=== PATIENT | male | born 1970 | race Caucasian/White ===

== ENCOUNTER 2017-03-17 01:35 | Inpatient (IN) | payer MEDICAID, OTHER ==
[~2017-03-17] VITALS: Ht 167.6 cm; Wt 60.3 kg
[~2017-03-17 01:35] MED LIST: QUET200T PO
[2017-03-17 02:13] LABS: BASOPHILS % (AUTO) 0.9 % (0.0-2.0); EOSINOPHILS % (AUTO) 1.9 % (1.0-6.0); HEMOGLOBIN 15.4 g/dL (13.5-17.5); LYMPHOCYTES # (AUTO) 1.9 K/uL (1.0-4.8); LYMPHOCYTES % (AUTO) 14.4 % (22.0-44.0); MEAN CORPUSCULAR HEMOGLOBIN 30.4 pg (26.0-34.0); MEAN CORPUSCULAR HGB CONC 34.2 G/dL (31.0-37.0); MEAN CORPUSCULAR VOLUME 89 fL (80-100); MONOCYTES # (AUTO) 0.7 K/uL (0.1-1.0); MONOCYTES % (AUTO) 5.1 % (2.0-9.0); NEUTROPHILS # (AUTO) 10.3 K/uL (1.8-7.7); NEUTROPHILS % (AUTO) 77.7 % (40.0-70.0); PLATELET COUNT (AUTO) 287 K/uL (150-450); RED BLOOD CELL COUNT(AUTO) 5.05 MIL/uL (4.50-5.90); RED CELL DISTRIBUTION WIDTH 13.4 % (11.5-14.5); WHITE BLOOD COUNT (AUTO) 13.2 K/uL (4.5-11.0)
[2017-03-17 02:25] LABS: ANION GAP 10 mmol/L (8-16); CALCIUM, TOTAL 8.8 mg/dL (8.8-10.5); CARBON DIOXIDE 28 mmol/L (22-29); CHLORIDE 94 mmol/L (98-107); CREATININE 1.34 mg/dL (0.60-1.30); GLOMERULAR FILTR. RATE CALC 57 mL/min (>60); POTASSIUM 3.6 mmol/L (3.5-5.1); SODIUM SERUM 132 mmol/L (136-145); UREA NITROGEN, BLOOD 12 mg/dL (7-18)
[2017-03-17 02:32] LABS: ALANINE AMINOTRANSFERASE 35 U/L (12-78); ALBUMIN 4.6 g/dL (3.4-5.0); ASPARTATE AMINOTRANSFERASE 21 U/L (15-37); BILIRUBIN,TOTAL 0.3 mg/dL (0.1-1.0)
[2017-03-17] MEDS ORDERED: LORazepam 2 MG TABLET PO ONE (03:00)
[2017-03-17] MEDS ORDERED: HALOPERIDOL 5 MG TABLET PO ONE (03:00)
[2017-03-17] MEDS ORDERED: HALOPERIDOL 5 MG TABLET PO PRN (04:00)
[2017-03-17] MEDS ORDERED: ZOLPIDEM TARTRATE 10 MG TABLET PO PRN (04:00)
[2017-03-17 08:26] VITALS: BP 105/70
[2017-03-17] MEDS: LORazepam 2 MG TABLET PO PRN ×2 (09:54→18:08)
[2017-03-17 10:16] VITALS: BP 105/70
[2017-03-17] MEDS ORDERED: ACETAMINOPHEN 325 MG TABLET PO PRN ×2 (10:30→14:45)
[2017-03-17] MEDS ORDERED: IBUPROFEN 400 MG TABLET PO PRN (14:45)
[2017-03-17 16:00] VITALS: BP 118/79
[2017-03-17] MEDS: QUEtiapine FUMARATE 200 MG TABLET PO SCH (20:22)
[2017-03-18] MEDS ORDERED: INFLUENZA VIRUS VACCINE QVS 2017-18 (3YR+)/PF 60 MCG/0.5 ML SYRINGE IM ONE (01:30)
[2017-03-18 06:03] VITALS: BP 118/80
[2017-03-18 08:28] VITALS: BP 135/83
[2017-03-18 16:00] VITALS: BP 128/74
[2017-03-18] MEDS: LORazepam 2 MG TABLET PO PRN (16:30)
[2017-03-18] MEDS: QUEtiapine FUMARATE 200 MG TABLET PO SCH (20:26)
[2017-03-19 05:43] VITALS: BP 122/78
[2017-03-19 07:53] LABS: HEMOGLOBIN A1C 6.2 % (4.5-6.2)
[2017-03-19 08:16] LABS: ALBUMIN 4.1 g/dL (3.4-5.0); BILIRUBIN,TOTAL 0.4 mg/dL (0.1-1.0); CHOL/HDL RATIO 2.3 (4.2-7.3); THYROID STIMULATING HORMONE 0.86 uIU/mL (0.36-3.74); TOTAL PROTEIN, SERUM 6.9 g/dL (6.4-8.2)
[2017-03-19 08:21] LABS: BILIRUBIN,DIRECT 0.1 mg/dL (0.00-0.20)
[2017-03-19 08:29] VITALS: BP 108/75
[2017-03-19] MEDS: LORazepam 2 MG TABLET PO PRN (10:57)
== END 2017-03-19 16:35 | disposition home or self-care (01) | DRG 750 ==
LOC: EMS 01:36 → B3A 04:30
PROVIDERS: ADMIT Psychiatry & Neurology Psychiatry
DX: F20.0 Paranoid schizophrenia (principal); E87.1 Hypo-osmolality and hyponatremia; E86.0 Dehydration; Z28.21 Immunization not carried out because of patient refusal; D72.829 Elevated white blood cell count, unspecified; H91.90 Unspecified hearing loss, unspecified ear; Z79.899 Other long term (current) drug therapy; Z91.5 Personal history of self-harm; R73.9 Hyperglycemia, unspecified
CPT/HCPCS: 83036; 84443; 90471; 99285; G0480

== ENCOUNTER 2017-04-17 08:25 | Emergency (ER) | payer MEDICAID, OTHER ==
[~2017-04-17] VITALS: Ht 170.2 cm; Wt 71.8 kg
[2017-04-17 08:58] LABS: BASOPHILS # (AUTO) 0.07 K/uL (0.00-0.20); BASOPHILS % (AUTO) 0.7 % (0.0-2.0); EOSINOPHILS # (AUTO) 0.28 K/uL (0.00-0.70); EOSINOPHILS % (AUTO) 2.79 % (1.0-6.0); HEMATOCRIT 43.9 % (41-53); LYMPHOCYTES # (AUTO) 1.8 K/uL (1.0-4.8); LYMPHOCYTES % (AUTO) 17.4 % (22.0-44.0); MEAN CORPUSCULAR HEMOGLOBIN 29.8 pg (26.0-34.0); MEAN CORPUSCULAR HGB CONC 34.2 G/dL (31.0-37.0); MEAN CORPUSCULAR VOLUME 87 fL (80-100); MONOCYTES # (AUTO) 0.5 K/uL (0.1-1.0); NEUTROPHILS # (AUTO) 7.5 K/uL (1.8-7.7); NEUTROPHILS % (AUTO) 74.1 % (40.0-70.0); PLATELET COUNT (AUTO) 305 K/uL (150-450); RED BLOOD CELL COUNT(AUTO) 5.03 MIL/uL (4.50-5.90); RED CELL DISTRIBUTION WIDTH 14.1 % (11.5-14.5); WHITE BLOOD COUNT (AUTO) 10.1 K/uL (4.5-11.0)
[2017-04-17 09:05] LABS: ANION GAP 8 mmol/L (8-16); CALCIUM, TOTAL 9.6 mg/dL (8.8-10.5); CARBON DIOXIDE 30 mmol/L (22-29); CHLORIDE 100 mmol/L (98-107); CREATININE 1.16 mg/dL (0.60-1.30); GLOMERULAR FILTR. RATE CALC > 60 mL/min (>60); POTASSIUM 3.9 mmol/L (3.5-5.1); SODIUM SERUM 138 mmol/L (136-145); UREA NITROGEN, BLOOD 18 mg/dL (7-18)
[2017-04-17 09:11] LABS: ALANINE AMINOTRANSFERASE 28 U/L (12-78); ALBUMIN 4.3 g/dL (3.4-5.0); ASPARTATE AMINOTRANSFERASE 18 U/L (15-37); BILIRUBIN,TOTAL 0.3 mg/dL (0.1-1.0); TOTAL PROTEIN, SERUM 7.8 g/dL (6.4-8.2)
[2017-04-17] MEDS ORDERED: LORazepam 1 MG TABLET PO ONE (11:45)
[2017-04-17] MEDS ORDERED: QUEtiapine FUMARATE 25 MG TABLET PO ONE (11:45)
[2017-04-17 11:59] VITALS: BP 123/59
== END 2017-04-17 12:24 | disposition home or self-care (01) ==
LOC: EMS 08:26 → EEVIPCON 08:26 → EMS 12:24
DX: F20.9 Schizophrenia, unspecified (principal)
CPT/HCPCS: 36415; 80053; 80307; 85025; 99285; G0480

== ENCOUNTER 2017-04-18 18:10 | Inpatient (IN) | payer MEDICAID, OTHER ==
[~2017-04-18] VITALS: Ht 170.2 cm; Wt 58.5 kg
[2017-04-18 19:26] LABS: BASOPHILS # (AUTO) 0.06 K/uL (0.00-0.20); BASOPHILS % (AUTO) 0.4 % (0.0-2.0); EOSINOPHILS # (AUTO) 0.19 K/uL (0.00-0.70); HEMATOCRIT 41.5 % (41-53); HEMOGLOBIN 13.9 g/dL (13.5-17.5); LYMPHOCYTES # (AUTO) 1.3 K/uL (1.0-4.8); LYMPHOCYTES % (AUTO) 8.9 % (22.0-44.0); MEAN CORPUSCULAR HEMOGLOBIN 30.3 pg (26.0-34.0); MEAN CORPUSCULAR HGB CONC 33.5 G/dL (31.0-37.0); MEAN CORPUSCULAR VOLUME 90 fL (80-100); MONOCYTES # (AUTO) 0.6 K/uL (0.1-1.0); MONOCYTES % (AUTO) 4.2 % (2.0-9.0); NEUTROPHILS # (AUTO) 12.5 K/uL (1.8-7.7); PLATELET COUNT (AUTO) 259 K/uL (150-450); RED CELL DISTRIBUTION WIDTH 13.9 % (11.5-14.5); WHITE BLOOD COUNT (AUTO) 14.6 K/uL (4.5-11.0)
[2017-04-18 19:30] LABS: NEUTROPHILS % (AUTO) 85.3 % (40.0-70.0)
[2017-04-18 19:43] LABS: ANION GAP 5 mmol/L (8-16); CARBON DIOXIDE 30 mmol/L (22-29); CHLORIDE 100 mmol/L (98-107); CREATININE 1.29 mg/dL (0.60-1.30); GLOMERULAR FILTR. RATE CALC 60 mL/min (>60); POTASSIUM 4.2 mmol/L (3.5-5.1); SODIUM SERUM 135 mmol/L (136-145); UREA NITROGEN, BLOOD 26 mg/dL (7-18)
[2017-04-18 19:52] LABS: ALANINE AMINOTRANSFERASE 29 U/L (12-78); ALBUMIN 3.9 g/dL (3.4-5.0); ASPARTATE AMINOTRANSFERASE 19 U/L (15-37); BILIRUBIN,TOTAL 0.3 mg/dL (0.1-1.0); TOTAL PROTEIN, SERUM 6.9 g/dL (6.4-8.2)
[2017-04-18] MEDS ORDERED: HALOPERIDOL LACTATE 5 MG/ML VIAL IM ONE (20:15)
[2017-04-18] MEDS ORDERED: HALOPERIDOL 5 MG TABLET PO PRN (21:15)
[2017-04-18] MEDS ORDERED: ZOLPIDEM TARTRATE 10 MG TABLET PO PRN (21:15)
[2017-04-18] MEDS ORDERED: LORazepam 2 MG TABLET PO PRN (21:15)
[2017-04-19 00:31] VITALS: BP 119/91
[2017-04-19] MEDS ORDERED: PNEUMOCOCCAL VACCINE POLYVALENT 0.5 ML VIAL [PPSV23] IM ONE (00:45)
[2017-04-19] MEDS ORDERED: INFLUENZA VIRUS VACCINE QVS 2017-18 (3YR+)/PF 60 MCG/0.5 ML SYRINGE IM ONE (00:45)
[2017-04-19 06:08] LABS: GLUCOSE COMMENT 1 Received Meds; GLUCOSE,POINT OF CARE 152 MG/DL (70-110)
[2017-04-19 06:42] LABS: BASOPHILS # (AUTO) 0.06 K/uL (0.00-0.20); BASOPHILS % (AUTO) 0.6 % (0.0-2.0); EOSINOPHILS # (AUTO) 0.25 K/uL (0.00-0.70); HEMATOCRIT 41.1 % (41-53); HEMOGLOBIN 13.8 g/dL (13.5-17.5); LYMPHOCYTES # (AUTO) 1.9 K/uL (1.0-4.8); LYMPHOCYTES % (AUTO) 16.9 % (22.0-44.0); MEAN CORPUSCULAR HEMOGLOBIN 29.9 pg (26.0-34.0); MEAN CORPUSCULAR HGB CONC 33.4 G/dL (31.0-37.0); MEAN CORPUSCULAR VOLUME 89 fL (80-100); MONOCYTES # (AUTO) 0.7 K/uL (0.1-1.0); MONOCYTES % (AUTO) 6.7 % (2.0-9.0); NEUTROPHILS # (AUTO) 8.1 K/uL (1.8-7.7); NEUTROPHILS % (AUTO) 73.5 % (40.0-70.0); PLATELET COUNT (AUTO) 260 K/uL (150-450); RED BLOOD CELL COUNT(AUTO) 4.61 MIL/uL (4.50-5.90); RED CELL DISTRIBUTION WIDTH 14.2 % (11.5-14.5)
[2017-04-19] MEDS ORDERED: DEXTROSE 50%-WATER 25 GM/50 ML SYRINGE IVP PRN (06:45)
[2017-04-19] MEDS: INSULIN ASPART 100 UNITS/ML SQ PRN ×2 (06:53→18:21)
[2017-04-19 06:59] LABS: HEMOGLOBIN A1C 6.5 % (4.5-6.2)
[2017-04-19 07:13] LABS: ALANINE AMINOTRANSFERASE 30 U/L (12-78); ALBUMIN 3.7 g/dL (3.4-5.0); ANION GAP 7 mmol/L (8-16); ASPARTATE AMINOTRANSFERASE 24 U/L (15-37); BILIRUBIN,TOTAL 0.4 mg/dL (0.1-1.0); CALCIUM, TOTAL 8.7 mg/dL (8.8-10.5); CARBON DIOXIDE 30 mmol/L (22-29); CHLORIDE 104 mmol/L (98-107); CHOL/HDL RATIO 2.8 (4.2-7.3); CREATININE 0.97 mg/dL (0.60-1.30); GLOMERULAR FILTR. RATE CALC > 60 mL/min (>60); POTASSIUM 4.3 mmol/L (3.5-5.1); SODIUM SERUM 141 mmol/L (136-145); TOTAL PROTEIN, SERUM 6.7 g/dL (6.4-8.2); UREA NITROGEN, BLOOD 22 mg/dL (7-18)
[2017-04-19 08:30] VITALS: BP 148/90
[2017-04-19 17:08] VITALS: BP 139/85
[2017-04-19] MEDS ORDERED: IBUPROFEN 400 MG TABLET PO PRN (18:45)
[2017-04-19] MEDS ORDERED: ACETAMINOPHEN 325 MG TABLET PO PRN (18:45)
[2017-04-19 18:47] LABS: GLUCOSE COMMENT 1 Received Meds; GLUCOSE,POINT OF CARE 168 MG/DL (70-110)
[2017-04-19] MEDS: QUEtiapine FUMARATE 200 MG TABLET PO SCH (22:24)
[2017-04-19 22:37] LABS: GLUCOSE,POINT OF CARE 135 MG/DL (70-110)
[2017-04-20] MEDS: INSULIN ASPART 100 UNITS/ML SQ PRN ×4 (06:24→20:59)
[2017-04-20 06:35] LABS: GLUCOSE COMMENT 1 Received Meds; GLUCOSE,POINT OF CARE 151 MG/DL (70-110)
[2017-04-20] MEDS: MetFORMIN HCL 500 MG TABLET PO SCH (06:42)
[2017-04-20 07:48] LABS: GLUCOSE,POINT OF CARE 199 MG/DL (70-110)
[2017-04-20 11:39] VITALS: BP 140/90
[2017-04-20 14:43] LABS: GLUCOSE,POINT OF CARE 280 MG/DL (70-110)
[2017-04-20 16:02] LABS: GLUCOSE COMMENT 1 Received Meds; GLUCOSE,POINT OF CARE 144 MG/DL (70-110)
[2017-04-20 16:57] VITALS: BP 125/79
[2017-04-20] MEDS: QUEtiapine FUMARATE 200 MG TABLET PO SCH (20:53)
[2017-04-20 21:08] LABS: GLUCOSE COMMENT 1 Received Meds; GLUCOSE,POINT OF CARE 141 MG/DL (70-110)
[2017-04-21 06:05] VITALS: BP 132/77
[2017-04-21] MEDS: MetFORMIN HCL 500 MG TABLET PO SCH (06:35)
[2017-04-21] MEDS: INSULIN ASPART 100 UNITS/ML SQ PRN ×3 (07:31→17:53)
[2017-04-21 10:47] VITALS: BP 147/92
[2017-04-21 12:04] LABS: GLUCOSE,POINT OF CARE 179 MG/DL (70-110)
[2017-04-21 12:04] LABS: GLUCOSE,POINT OF CARE 219 MG/DL (70-110)
[2017-04-21 17:09] VITALS: BP 145/86
[2017-04-21 17:37] LABS: GLUCOSE COMMENT 1 FASTING; GLUCOSE,POINT OF CARE 172 MG/DL (70-110)
[2017-04-21] MEDS: QUEtiapine FUMARATE 200 MG TABLET PO SCH (22:02)
[2017-04-21 22:52] LABS: GLUCOSE COMMENT 1 FASTING; GLUCOSE,POINT OF CARE 95 MG/DL (70-110)
[2017-04-22 06:23] LABS: GLUCOSE COMMENT 1 Received Meds; GLUCOSE,POINT OF CARE 175 MG/DL (70-110)
[2017-04-22] MEDS: INSULIN ASPART 100 UNITS/ML SQ PRN ×3 (06:55→21:11)
[2017-04-22] MEDS: MetFORMIN HCL 500 MG TABLET PO SCH (06:56)
[2017-04-22 11:59] LABS: GLUCOSE COMMENT 1 Received Meds; GLUCOSE,POINT OF CARE 180 MG/DL (70-110)
[2017-04-22 16:33] LABS: GLUCOSE,POINT OF CARE 139 MG/DL (70-110)
[2017-04-22 18:34] VITALS: BP 146/86
[2017-04-22] MEDS: QUEtiapine FUMARATE 200 MG TABLET PO SCH (20:42)
[2017-04-22 20:44] LABS: GLUCOSE,POINT OF CARE 151 MG/DL (70-110)
[2017-04-23 05:18] LABS: GLUCOSE COMMENT 1 FASTING; GLUCOSE,POINT OF CARE 143 MG/DL (70-110)
[2017-04-23] MEDS: MetFORMIN HCL 500 MG TABLET PO SCH (06:51)
[2017-04-23] MEDS: INSULIN ASPART 100 UNITS/ML SQ PRN ×2 (06:58→11:13)
[2017-04-23 07:26] VITALS: BP 146/96
[2017-04-23 09:06] VITALS: BP 114/85
[2017-04-23 11:17] LABS: GLUCOSE COMMENT 1 Received Meds; GLUCOSE,POINT OF CARE 213 MG/DL (70-110)
[2017-04-23] MEDS ORDERED: METF500T4 PO (14:48)
== END 2017-04-23 16:30 | disposition home or self-care (01) | DRG 750 ==
LOC: EMS 18:11 → 3EI 22:42
DX: F20.0 Paranoid schizophrenia (principal); E87.1 Hypo-osmolality and hyponatremia; D72.829 Elevated white blood cell count, unspecified; H91.3 Deaf nonspeaking, not elsewhere classified; R73.03 Prediabetes; F10.10 Alcohol abuse, uncomplicated; F19.10 Other psychoactive substance abuse, uncomplicated; Z79.899 Other long term (current) drug therapy; Z91.5 Personal history of self-harm; Z28.21 Immunization not carried out because of patient refusal
CPT/HCPCS: 82962; 83036; 87081; 96372; 99285; G0480; J1630